=== PATIENT | female | born 1990 | race American Indian/Alaskan Native ===

== ENCOUNTER 2018-05-21 15:06 | Emergency (ER) | payer SELFPAY ==
[2018-05-21 15:41] VITALS: BP 110/71
[2018-05-21] MEDS ORDERED: CLEOCIN IM ONE (16:07)
[2018-05-21] MEDS ORDERED: MOTRIN PO ONE (16:08)
--- NOTE | 2018-05-21 16:12 | Emergency Department Report ---
ED ENT HPI - General Chief complaint: Dental/Oral Stated complaint: FACIAL SWELLING Time Seen by Provider: 05/21/18 16:03 Source: patient Mode of arrival: Ambulatory Limitations: No Limitations - History of Present Illness Initial comments: This is a 28-year-old female nontoxic, well nourished in appearance, no acute signs of distress presents to the ED with c/o of right upper and lower toothache 3 weeks. Patient denies following up with a dentist. Patient stated that pain radiates from his job to his right side of head. Patient otherwise denies any head trauma. Patient describes toothache as aching level of 8 out of 10. Patient denies any facial swelling. Patient denies any numbness, tingling, fever, chills, headache, stiff neck, abdominal pain, chest pain, shortness of breath. Patient stated allergies to PCN but denies significant PMH. MD complaint: tooth pain -: week(s) (3) Location: tooth # Severity: mild Severity scale (0 -10): 8 Quality: aching Consistency: constant Improves with: none Worsens with: none Context- Dental: history of dental caries, poor dental care Associated Symptoms: gum swelling, toothache. denies: fever, cough, pain with swallowing, sore throat, tinnitus, hearing loss, discharge from ear, rhinorrhea - Related Data Previous Rx's Medication Instructions Recorded Last Taken Type Acetaminophen/Codeine [Tylenol 1 tab PO Q6H PRN #12 tab 05/21/18 Unknown Rx /Codeine # 3 tab] Clindamycin [Clindamycin CAP] 300 mg PO Q8H #21 cap 05/21/18 Unknown Rx Ibuprofen [Motrin] 600 mg PO Q8H PRN #30 tablet 05/21/18 Unknown Rx Allergies Allergy/AdvReac Type Severity Reaction Status Date / Time Penicillins Allergy Itching Verified 05/21/18 15:36 ED Dental HPI - General Chief complaint: Dental/Oral Stated complaint: FACIAL SWELLING Time Seen by Provider: 05/21/18 16:03 Source: patient Mode of arrival: Ambulatory Limitations: No Limitations - Related Data Previous Rx's Medication Instructions Recorded Last Taken Type Acetaminophen/Codeine [Tylenol 1 tab PO Q6H PRN #12 tab 05/21/18 Unknown Rx /Codeine # 3 tab] Clindamycin [Clindamycin CAP] 300 mg PO Q8H #21 cap 05/21/18 Unknown Rx Ibuprofen [Motrin] 600 mg PO Q8H PRN #30 tablet 05/21/18 Unknown Rx Allergies Allergy/AdvReac Type Severity Reaction Status Date / Time Penicillins Allergy Itching Verified 05/21/18 15:36 ED Review of Systems ROS: Stated complaint: FACIAL SWELLING Other details as noted in HPI Constitutional: denies: chills, fever Eyes: denies: eye pain, eye discharge, vision change ENT: dental pain. denies: ear pain, throat pain Respiratory: denies: cough, shortness of breath, wheezing Cardiovascular: denies: chest pain, palpitations Endocrine: no symptoms reported Gastrointestinal: denies: abdominal pain, nausea, diarrhea Genitourinary: denies: urgency, dysuria, discharge Musculoskeletal: denies: back pain, joint swelling, arthralgia Skin: denies: rash, lesions Neurological: denies: headache, weakness, paresthesias Psychiatric: denies: anxiety, depression Hematological/Lymphatic: denies: easy bleeding, easy bruising ED Past Medical Hx - Past Medical History Previous Medical History?: No - Surgical History Past Surgical History?: No - Social History Smoking Status: Never Smoker Substance Use Type: None - Medications Home Medications: Home Medications Medication Instructions Recorded Confirmed Last Taken Type Acetaminophen/Codeine [Tylenol 1 tab PO Q6H PRN #12 tab 05/21/18 Unknown Rx /Codeine # 3 tab] Clindamycin [Clindamycin CAP] 300 mg PO Q8H #21 cap 05/21/18 Unknown Rx Ibuprofen [Motrin] 600 mg PO Q8H PRN #30 tablet 05/21/18 Unknown Rx ED Physical Exam - General Limitations: No Limitations General appearance: alert, in no apparent distress - Head Head exam: Present: atraumatic, normocephalic - Eye Eye exam: Present: normal appearance Pupils: Present: normal accommodation - ENT ENT exam: Present: mucous membranes moist, TM's normal bilaterally, normal external ear exam - Expanded ENT Exam Expanded Ear exam: Present: normal external inspection Mouth exam: Present: normal external inspection, tongue normal. Absent: drooling, trismus, muffled voice, tongue elevation, laceration Teeth exam: Present: dental caries, fractured tooth #, dental tenderness #, gingival enlargement, other (no facial swelling noted) Throat exam: Positive: normal inspection, other (Uvula midline.). Negative: tonsillar erythema, tonsillomegaly, tonsillar exudate, R peritonsillar mass, L peritonsillar mass - Neck Neck exam: Present: normal inspection, full ROM. Absent: tenderness, meningismus, lymphadenopathy - Respiratory Respiratory exam: Present: normal lung sounds bilaterally. Absent: respiratory distress - Cardiovascular Cardiovascular Exam: Present: regular rate, normal rhythm. Absent: systolic murmur, diastolic murmur, rubs, gallop - GI/Abdominal GI/Abdominal exam: Present: soft, normal bowel sounds - Extremities Exam Extremities exam: Present: normal inspection - Back Exam Back exam: Present: normal inspection - Neurological Exam Neurological exam: Present: alert, oriented X3 - Psychiatric Psychiatric exam: Present: normal affect, normal mood - Skin Skin exam: Present: warm, dry, intact, normal color. Absent: rash ED Course Vital Signs 05/21/18 15:36 Temperature 98.4 F Pulse Rate 68 Respiratory 16 Rate Blood Pressure 110/71 O2 Sat by Pulse 96 Oximetry - Reevaluation(s) Reevaluation #1: 05/21/18 16:12 Patient is speaking in full sentences with no signs of distress noted. ED Medical Decision Making - Medical Decision Making This is a 28-year-old female that presents with gingivitis and dental caries. Patient is stable and was examined by me. There is no facial swelling. I did give patient clindamycin 600 mg IM in the ED and patient is discharged with clindamycin. He had strict instructions to follow-up with oral maxillary surgeon in 24 hours or if symptoms would worsen to return to emergency room as was possible. Patient is discharged with Ultram, Peridex and Clinda. Patient was instructed not to operate any machinery when taking Ultram due to drowsiness. At time of discharge, the patient does not seem toxic or ill in appearance. No acute signs of distress noted. Patient agrees to discharge treatment plan of care. No further questions noted by the patient. Critical care attestation.: If time is entered above; I have spent that time in minutes in the direct care of this critically ill patient, excluding procedure time. ED Disposition Clinical Impression: Dental caries, Gingivitis Disposition: TO HOME OR SELFCARE Is pt being admited?: No Does the pt Need Aspirin: No Condition: Stable Instructions: Dental Caries (ED), Gingivitis (ED), Acetaminophen/Codeine (By mouth) Additional Instructions: Follow-up with a oral maxillary surgeon in 24 hours or if symptoms worsen and continue return to emergency room as soon as possible. Do not operate any machinery while taking Tylenol with codeine as this may cause drowsiness. Prescriptions: Acetaminophen/Codeine [Tylenol /Codeine # 3 tab] 1 tab PO Q6H PRN #12 tab PRN Reason: Pain , Severe (7-10) Clindamycin [Clindamycin CAP] 300 mg PO Q8H #21 cap Ibuprofen [Motrin] 600 mg PO Q8H PRN #30 tablet PRN Reason: Pain Referrals: PRIMARY CARE, [Referring] - 3-5 Days CRISTELA BANGURA MD [Staff Physician] - 3-5 Days [facility] [Outside] - 24 Hours Forms: Work/School Release Form(ED)
== END 2018-05-21 16:26 | disposition home or self-care (01) ==
LOC: ED 15:06
DX: K02.9 Dental caries, unspecified (principal); K05.00 Acute gingivitis, plaque induced; Z88.0 Allergy status to penicillin
CPT/HCPCS: 96372; 99282

== ENCOUNTER 2019-07-03 15:41 | Emergency (ER) | payer OTHER ==
--- NOTE | 2019-07-03 16:09 | Event Note ---
ED Screening Note ED Screening Note: cough that began three days ago states she has coughing only after frequent coughing +SOB +mucus production +rhinorrhea no sick contacts no pmhx allergy: penicillin LNMP: june 20, 2019 This initial assessment/diagnostic orders/clinical plan/treatment(s) is/are subject to change based on patients health status, clinical progression and re- assessment by fellow clinical providers in the ED. Further treatment and workup at subsequent clinical providers discretion. Patient/guardian urged not to elope from the ED as their condition may be serious if not clinically assessed and managed. Initial orders include: CXR
--- NOTE | 2019-07-03 16:38 | XRay Report ---
CHEST PA AND LATERAL VIEWS INDICATION: cough. COMPARISON: None. FINDINGS: Support devices: None. Heart: Within normal limits. Lungs/Pleura: No acute pulmonary or pleural findings. IMPRESSION: 1. No significant abnormality. Signer Name: Loi Spivey MD Signed: 07/03/2019 4:34 PM Workstation Name: [id number]
[2019-07-03] MEDS ORDERED: IBUPROFEN PO ONE (19:33)
[2019-07-03] MEDS ORDERED: TESSALON PERLES PO ONE (19:33)
--- NOTE | 2019-07-03 20:22 | Emergency Department Report ---
- General Chief Complaint: Dyspnea/Respdistress Stated Complaint: CHEST PAIN/JACOBO Time Seen by Provider: 07/03/19 16:05 Source: patient Mode of arrival: Ambulatory Limitations: No Limitations - History of Present Illness Initial Comments: This is a 29-year-old female nontoxic, well nourished in appearance, no acute signs of distress presents to the ED with c/o of dry nonproductive cough, rhinorrhea, nasal congestion x4 days. Patient also stated has chest pain that is worsened during cough. Patient denies any sick contacts. Patient denies any recent travels, long car, recent hospital stays. Patient denies any calf pain or calf tenderness. Patient denies any short of breath, fever, chills, nausea, vomiting, hemoptysis, numbness, tingling, headache or stiff neck. Patient stated allergies to PCN. Patient denies significant past medical history. MD Complaint: cough, rhinorrhea, nasal congestion -: days(s) (4) Severity: mild Severity scale (0 -10): 8 Quality: aching Consistency: intermittent Improves With: nothing Worsens With: nothing Associated Symptoms: rhinorrhea, nasal congestion, cough, chest pain (only during cough). denies: fever, chills, myalgias, diaphoresis, headache, sore throat, stiff neck, shortness of breath, abdominal pain, nausea, vomiting, diarrhea, dysuria, rash, confusion, right sweats, weight loss, epistaxis, hoar seness, ear pain Treatments Prior to Arrival: none - Related Data Previous Rx's Medication Instructions Recorded Last Taken Type Acetaminophen/Codeine [Tylenol 1 tab PO Q6H PRN #12 tab 05/21/18 Unknown Rx /Codeine # 3 tab] Clindamycin [Clindamycin CAP] 300 mg PO Q8H #21 cap 05/21/18 Unknown Rx Ibuprofen [Motrin] 600 mg PO Q8H PRN #30 tablet 05/21/18 Unknown Rx Benzonatate [Tessalon Perles] 100 mg PO Q8HR PRN #20 capsule 07/03/19 Unknown Rx Ibuprofen [Motrin] 600 mg PO Q8H PRN #20 tablet 07/03/19 Unknown Rx Prednisone [predniSONE 10 mg 10 mg PO .TAPER #1 tab.ds.pk 07/03/19 Unknown Rx (6-Day Pack, 21 Tabs)] Allergies Allergy/AdvReac Type Severity Reaction Status Date / Time Penicillins Allergy Itching Verified 07/03/19 15:42 ED Review of Systems ROS: Stated complaint: CHEST PAIN/JACOBO Other details as noted in HPI Constitutional: denies: chills, fever Eyes: denies: eye pain, eye discharge, vision change ENT: congestion. denies: ear pain, throat pain Respiratory: cough. denies: shortness of breath, wheezing Cardiovascular: chest pain. denies: palpitations Endocrine: no symptoms reported Gastrointestinal: denies: abdominal pain, nausea, diarrhea Genitourinary: denies: urgency, dysuria, discharge Musculoskeletal: denies: back pain, joint swelling, arthralgia Skin: denies: rash, lesions Neurological: denies: headache, weakness, paresthesias Psychiatric: denies: anxiety, depression Hematological/Lymphatic: denies: easy bleeding, easy bruising ED Past Medical Hx - Past Medical History Previous Medical History?: No - Surgical History Past Surgical History?: No - Social History Smoking Status: Never Smoker Substance Use Type: Marijuana - Medications Home Medications: Home Medications Medication Instructions Recorded Confirmed Last Taken Type Acetaminophen/Codeine [Tylenol 1 tab PO Q6H PRN #12 tab 05/21/18 Unknown Rx /Codeine # 3 tab] Clindamycin [Clindamycin CAP] 300 mg PO Q8H #21 cap 05/21/18 Unknown Rx Ibuprofen [Motrin] 600 mg PO Q8H PRN #30 tablet 05/21/18 Unknown Rx Benzonatate [Tessalon Perles] 100 mg PO Q8HR PRN #20 capsule 07/03/19 Unknown Rx Ibuprofen [Motrin] 600 mg PO Q8H PRN #20 tablet 07/03/19 Unknown Rx Prednisone [predniSONE 10 mg 10 mg PO .TAPER #1 tab.ds.pk 07/03/19 Unknown Rx (6-Day Pack, 21 Tabs)] ED Physical Exam - General Limitations: No Limitations General appearance: alert, in no apparent distress - Head Head exam: Present: atraumatic, normocephalic - Neck Neck exam: Present: normal inspection, full ROM. Absent: tenderness, meningismus, lymphadenopathy - Respiratory Respiratory exam: Present: normal lung sounds bilaterally, chest wall tenderness. Absent: respiratory distress, wheezes, rales, rhonchi, stridor, accessory muscle use, decreased breath sounds, prolonged expiratory - Cardiovascular Cardiovascular Exam: Present: regular rate, normal rhythm, normal heart sounds. Absent: bradycardia, tachycardia, irregular rhythm, systolic murmur, diastolic murmur, rubs, gallop - Extremities Exam Extremities exam: Present: normal inspection, full ROM - Back Exam Back exam: Present: normal inspection, full ROM. Absent: tenderness, CVA tenderness (R), CVA tenderness (L), muscle spasm, paraspinal tenderness, vertebral tenderness, rash noted - Neurological Exam Neurological exam: Present: alert, oriented X3, normal gait - Psychiatric Psychiatric exam: Present: normal affect, normal mood - Skin Skin exam: Present: warm, dry, intact, normal color. Absent: rash ED Course Vital Signs 07/03/19 16:06 Temperature 98.5 F Pulse Rate 82 Respiratory 20 Rate Blood Pressure 120/69 O2 Sat by Pulse 99 Oximetry - Reevaluation(s) Reevaluation #1: 07/03/19 20:24 Patient is speaking in full sentences with no signs of distress noted. ED Medical Decision Making - Medical Decision Making This is a 29-year-old female that presents with bronchitis and costochondritis. Patient is stable and was examined by me. Chest x-ray has been obtained and dictated by radiologist with normal exam. EKG normal sinus rhythm with no ST abnormalities. Patient is notified of x-ray results with no questions noted. Patient was instructed to increase hydration, rest and take Motrin for fever episodes. Patient received motrin and tesslone perrls in the ED. Vitals stable. Patient is nonfebrile and normal heart rate. Patient was instructed Follow-up with a primary care doctor in 3-5 days or if symptoms worsen and continue return to emergency room as soon as possible. At time time of disc harge, the patient does not seem toxic or ill in appearance. No acute signs of distress noted. Patient agrees to discharge treatment plan of care. No further questions noted by the patient. Critical care attestation.: If time is entered above; I have spent that time in minutes in the direct care of this critically ill patient, excluding procedure time. ED Disposition Clinical Impression: Bronchitis, Costochondritis Disposition: - TO HOME OR SELFCARE Is pt being admited?: No Does the pt Need Aspirin: No Condition: Stable Instructions: Acute Bronchitis (ED), Costochondritis (ED) Additional Instructions: Follow-up with a primary care doctor in 3-5 days or if symptoms worsen and continue return to emergency room as soon as possible. Prescriptions: Ibuprofen [Motrin] 600 mg PO Q8H PRN #20 tablet PRN Reason: Pain Prednisone [predniSONE 10 mg (6-Day Pack, 21 Tabs)] 10 mg PO .TAPER #1 tab.ds.pk Benzonatate [Tessalon Perles] 100 mg PO Q8HR PRN #20 capsule PRN Reason: Cough Referrals: SHANNON [place] MD JUDI [Primary Care Provider] - 3-5 Days PRIMARY CAREMD [Referring] - 3-5 Days CRISTELA BANGURA MD [Staff Physician] - 3-[address] [facility] [Outside] - 3-5 Days [facility] [Outside] - 3-5 Days Forms: Work/School Release Form(ED)
[2019-07-03 20:30] VITALS: BP 111/58
== END 2019-07-03 20:33 | disposition home or self-care (01) ==
LOC: ED 15:41
DX: J40 Bronchitis, not specified as acute or chronic (principal); M94.0 Chondrocostal junction syndrome [Tietze]; F12.10 Cannabis abuse, uncomplicated; Z79.899 Other long term (current) drug therapy; Z88.0 Allergy status to penicillin
CPT/HCPCS: 71046; 93005; 93010

== ENCOUNTER 2020-09-23 09:11 | Emergency (ER) | payer OTHER ==
[2020-09-23 09:38] VITALS: BP 99/69
[2020-09-23] MEDS ORDERED: HYDROmorphone 1 MG/1 ML INJ IV ONE ×2 (10:03→10:45)
[2020-09-23] MEDS ORDERED: SODIUM CHLORIDE 0.9% 1000 ML 1,000 ML IV ONE (10:04)
--- NOTE | 2020-09-23 10:04 | Emergency Department Report ---
ED General Adult HPI - General Chief complaint: Abdominal Pain Stated complaint: ABD PAIN/BLEEDING PUI?: No Time Seen by Provider: 09/23/20 09:58 Source: patient, EMS ( EMS documentation not available at time of chart dic tation ) Mode of arrival: Wheelchair Limitations: Physical Limitation - History of Present Illness Initial comments: The patient was evaluated in the emergency department for symptoms described in the history of present illness. He/she was evaluated in the context of the global COVID-19 pandemic, which necessitated consideration that the patient might be at risk for infection with the virus that causes COVID-19. Institutional protocols and algorithms that pertain to the evaluation of patients at risk for COVID-19 are in a state of rapid change based on information released by regulatory bodies including the CDC and federal and state organizations. These policies and algorithms were followed during the patient's care in the emergency department. Please note that these policies, procedures and recommendations changed on a rapid basis. During the entire history and physical examination, I am chaperoned by nurse Ava Mcelroy. Patient is a 30-year-old female who is not known to myself previously, she denies chronic medical conditions and surgical history. Her primary care doctor is at [place]. She does not believe that she has a forestry professor. She is not sure if she is , but does not believe so. She presents to the ER with a complaint of nontraumatic diffuse lower abdominal pain, and associated vaginal bleeding. This started yesterday. There is no headache, neck pain, chest pain. There is no of abdominal pain. There is positive nausea. No urinary symptoms. No history of gonorrhea/chlamydia. She indicates the pain started suprapubic, and migrated to the left lower quadrant and right lower quadrant. She describes the pain as what she imagine a incision might feel like, however, she is never had a . She reports that over the past few months, she has had increasing frequency of lower abdominal pain associate with vaginal bleeding. However, she is not obtained a definitive diagnosis or evaluation. Pain is aching and sharp, increases with palpation, decreases with rest and position. -: Gradual, hour(s) (Symptoms started last night) Location: abdomen Radiation: abdomen Quality: other Consistency: other Improves with: other Worsens with: other Associated Symptoms: other - Related Data Previous Rx's Medication Instructions Recorded Last Taken Type Clindamycin [Clindamycin CAP] 300 mg PO Q8H #21 cap 05/21/18 Unknown Rx Benzonatate [Tessalon Perles] 100 mg PO Q8HR PRN #20 capsule 07/03/19 Unknown Rx Albuterol Sulfate [Proventil Hfa] 6.7 gm IH Q4HR #1 hfa.aer.ad 05/05/20 Unknown Rx Azithromycin [Zithromax Z-EVETTE] 250 mg PO ONCE #1 tablet 05/05/20 Unknown Rx Benzonatate [Tessalon Perles] 100 mg PO Q8HR #21 capsule 05/05/20 Unknown Rx Acetaminophen [Non-Aspirin Extra 500 mg PO Q6HR PRN #30 tablet 09/23/20 Unknown Rx Strength] Ibuprofen [Motrin] 600 mg PO Q8H PRN #30 tablet 09/23/20 Unknown Rx Ondansetron [Zofran Odt] 4 mg PO Q8HR PRN #20 tab.rapdis 09/23/20 Unknown Rx Allergies Allergy/AdvReac Type Severity Reaction Status Date / Time Penicillins Allergy Itching Verified 07/03/19 15:42 ED Review of Systems ROS: Stated complaint: ABD PAIN/BLEEDING Other details as noted in HPI Constitutional: malaise. denies: fever Eyes: denies: eye discharge ENT: denies: epistaxis, congestion Respiratory: denies: cough Cardiovascular: denies: chest pain Gastrointestinal: abdominal pain, nausea Genitourinary: abnormal menses. denies: dysuria, discharge Musculoskeletal: denies: back pain Neurological: weakness Psychiatric: anxiety Hematological/Lymphatic: denies: easy bleeding ED Past Medical Hx - Past Medical History Previous Medical History?: No - Surgical History Past Surgical History?: No - Social History Smoking Status: Never Smoker Substance Use Type: None - Medications Home Medications: Home Medications Medication Instructions Recorded Confirmed Last Taken Type Clindamycin [Clindamycin CAP] 300 mg PO Q8H #21 cap 05/21/18 Unknown Rx Benzonatate [Tessalon Perles] 100 mg PO Q8HR PRN #20 capsule 07/03/19 Unknown Rx Albuterol Sulfate [Proventil Hfa] 6.7 gm IH Q4HR #1 hfa.aer.ad 05/05/20 Unknown Rx Azithromycin [Zithromax Z-EVETTE] 250 mg PO ONCE #1 tablet 05/05/20 Unknown Rx Benzonatate [Tessalon Perles] 100 mg PO Q8HR #21 capsule 05/05/20 Unknown Rx Acetaminophen [Non-Aspirin Extra 500 mg PO Q6HR PRN #30 tablet 09/23/20 Unknown Rx Strength] Ibuprofen [Motrin] 600 mg PO Q8H PRN #30 tablet 09/23/20 Unknown Rx Ondansetron [Zofran Odt] 4 mg PO Q8HR PRN #20 tab.rapdis 09/23/20 Unknown Rx ED Physical Exam - General Limitations: Physical Limitation General appearance: alert, anxious, in distress - Head Head exam: Present: atraumatic, normocephalic - Eye Eye exam: Present: normal appearance, EOMI. Absent: nystagmus - ENT ENT exam: Present: normal exam, normal orophraynx, mucous membranes moist, normal external ear exam - Neck Neck exam: Present: normal inspection, full ROM. Absent: tenderness, meningismus - Respiratory Respiratory exam: Present: normal lung sounds bilaterally. Absent: respiratory distress, wheezes, rales, rhonchi, stridor, decreased breath sounds - Cardiovascular Cardiovascular Exam: Present: regular rate, normal rhythm, normal heart sounds. Absent: bradycardia, tachycardia, irregular rhythm, systolic murmur, diastolic murmur, rubs, gallop - GI/Abdominal GI/Abdominal exam: Present: soft, tenderness (There is mild diffuse lower abdominal tenderness. There is no rebound, guarding or there is no peritoneal sign.), normal bowel sounds. Absent: distended, guarding, rebound, rigid - External exam: Present: normal external exam, bleeding Speculum exam: Present: vaginal bleeding, tissue, other (Chaperoned by nurse Ava Sotelo) Bi-manual exam: Present: cervical motion tendernes, other (Patient unable to tolerate adnexal examination.) - Extremities Exam Extremities exam: Present: normal inspection, full ROM, other (2+ pulses noted in the bilateral upper and lower extremities. There is no palpable cord. n egative Homans sign. Muscular compartments are soft. The pelvis is stable.). Absent: pedal edema, calf tenderness - Back Exam Back exam: Present: normal inspection, full ROM. Absent: tenderness, CVA tenderness (R), CVA tenderness (L), paraspinal tenderness, vertebral tenderness - Neurological Exam Neurological exam: Present: alert, other (No facial droop. Tongue midline. Extraocular movements intact bilaterally. Facial sensation intact to light touch in V1, V2, V3 distribution bilaterally. 5 and a 5 strength in 4 extremities. Sensation intact to light touch in 4 extremities.). Absent: motor sensory deficit - Psychiatric Psychiatric exam: Present: anxious - Skin Skin exam: Present: warm, dry, intact, normal color. Absent: rash ED Course Vital Signs 09/23/20 09:38 Temperature 97.8 F Pulse Rate 77 Respiratory 20 Rate Blood Pressure 99/69 [Left] O2 Sat by Pulse 99 Oximetry - Reevaluation(s) Reevaluation #1: 09/23/20 10:38 Differential diagnosis, include not limited to: Ovarian cyst, ovarian torsion, pelvic inflammatory disease, dysfunctional uterine bleeding, fibroids, , miscarriage, ectopic Assessment and plan: 30-year-old female with complaint of diffuse lower abdominal pain associated with vaginal bleeding. Check appropriate laboratory studies, pelvic ultrasound, urinalysis, perform gynecologic examination, treat pain liberally, and reassess. Reevaluation #2: 09/23/20 12:22 The patient is reassessed She is in absolutely no pain whatsoever. Abdomen soft and benign, without rebound, guarding or peritoneal signs. She is also eating food. She is also noted to be speaking on her cell phone, and she is in no acute distress. Her ultrasound has not demonstrated any pathologic abnormality. She has not complained of any urinary symptoms and specifically denies irritative and obstructive urinary symptoms. She also reports that she has an appointment with her forestry professor at [employer] today. This is most likely dysfunctional uterine bleeding. She reports readiness for discharge, and reliability to follow-up with her outpatient forestry professor later on today. ED Medical Decision Making - Lab Data Result diagrams: 09/23/20 10:30 09/23/20 10:30 Vital Signs 09/23/20 09:38 Temperature 97.8 F Pulse Rate 77 Respiratory 20 Rate Blood Pressure 99/69 [Left] O2 Sat by Pulse 99 Oximetry Lab Results 09/23/20 09/23/20 09/23/20 Range/Units 10:30 10:30 10:30 WBC 6.5 (4.5-11.0) K/mm3 RBC 3.84 (3.65-5.03) M/mm3 Hgb 11.2 (10.1-14.3) gm/dl Hct 34.7 (30.3-42.9) % MCV 90 (79-97) fl MCH 29 (28-32) pg MCHC 32 (30-34) % RDW 13.6 (13.2-15.2) % Plt Count 314 (140-440) K/mm3 Sodium 138 (137-145) mmol/L Potassium 3.9 (3.6-5.0) mmol/L Chloride 107.9 H (98-107) mmol/L Carbon Dioxide 22 (22-30) mmol/L Anion Gap 12 mmol/L BUN 9 (7-17) mg/dL Creatinine 0.8 (0.6-1.2) mg/dL Estimated GFR > 60 ml/min BUN/Creatinine Ratio 11 % Glucose 102 H (65-100) mg/dL Calcium 8.6 (8.4-10.2) mg/dL Magnesium 1.90 (1.7-2.3) mg/dL Total Bilirubin 0.30 (0.1-1.2) mg/dL AST 15 (5-40) units/L ALT 8 (7-56) units/L Alkaline Phosphatase 43 (35-129) units/L Total Creatine Kinase 183 H (30-135) units/L Total Protein 6.5 (6.3-8.2) g/dL Albumin 4.1 (3.9-5) g/dL Albumin/Globulin Ratio 1.7 % Blood Type 09/23/20 Range/Units 10:30 WBC (4.5-11.0) K/mm3 RBC (3.65-5.03) M/mm3 Hgb (10.1-14.3) gm/dl Hct (30.3-42.9) % MCV (79-97) fl MCH (28-32) pg MCHC (30-34) % RDW (13.2-15.2) % Plt Count (140-440) K/mm3 Sodium (137-145) mmol/L Potassium (3.6-5.0) mmol/L Chloride (98-107) mmol/L Carbon Dioxide (22-30) mmol/L Anion Gap mmol/L BUN (7-17) mg/dL Creatinine (0.6-1.2) mg/dL Estimated GFR ml/min BUN/Creatinine Ratio % Glucose (65-100) mg/dL Calcium (8.4-10.2) mg/dL Magnesium (1.7-2.3) mg/dL Total Bilirubin (0.1-1.2) mg/dL AST (5-40) units/L ALT (7-56) units/L Alkaline Phosphatase (35-129) units/L Total Creatine Kinase (30-135) units/L Total Protein (6.3-8.2) g/dL Albumin (3.9-5) g/dL Albumin/Globulin Ratio % Blood Type A POSITIVE - Radiology Data Radiology results: report reviewed, image reviewed Print Report Referring Physician: ELIEL JUAN Patient Name: AVA HERNÁNDEZ Date of : 1990 Sex: Female Report Date: 2020-09-23 Report Status: [place] [id number] Ultrasound Report Signed Patient: AVA HERNÁNDEZ MR#: [id number] : 1990 Acct:[id number] Age/Sex: 30 / F ADM Date: 09/23/20 Loc: ED Attending Dr: Ordering Physician: ELIEL JUAN MD Date of Service: 09/23/20 Procedure(s): US pelvis duplex doppler comp Accession Number(s): [id number] cc: ELIEL JUAN MD ULTRASOUND PELVIS INDICATION: Lower abdominal and pelvic pain, vaginal bleeding. TECHNIQUE: Transabdominal and Transvaginal. Duplex Color Doppler used: Yes. COMPARISON: None available FINDINGS: Uterus: Present. Size: 8.4 x 3.4 x 4.5 cm. Endometrial complex: Normal measuring 1.2 cm. Mass lesions: None. Additional findings: None. Right Ovary: Size: 4.4 x 3.2 x 3.0 cm Blood flow: Normal. Cyst or mass: None. Left Ovary: Size: 3.1 x 2.4 x 3.8 cm Blood flow: Normal. Cyst or mass: None. Urinary Bladder: Normal. Free Fluid: None. Additional Findings: None. IMPRESSION: 1. No acute sonographic abnormality of the pelvis. Signer Name: Serjio Estrada MD Signed: 09/23/2020 12:10 PM Workstat ion Name: [id number] Transcribed By: [place] Dictated By: Serjio Estrada MD Electronically Authenticated By: Serjio Estrada MD Signed Date/Time: 09/23/20 1210 DD/ 1209 TD/TT: Critical care attestation.: If time is entered above; I have spent that time in minutes in the direct care of this critically ill patient, excluding procedure time. ED Disposition Clinical Impression: Dysmenorrhea Disposition: DC-01 TO HOME OR SELFCARE Is pt being admited?: No Does the pt Need Aspirin: No Condition: Stable Instructions: Abdominal Pain (ED), Dysmenorrhea Additional Instructions: Cultures were sent today, and results will be available in the next 3 to 5 days. Please have your primary care doctor or forestry professor contact the medical records department to obtain culture results. Please follow-up with your forestry professor later on today as scheduled, or any of the aforementioned/listed forestry professor within the next week. Rest, avoid heavy lifting and strenuous physical activity, and participate in sexual activity as physically tolerated. Take the pain medication, nausea medication as needed and directed, and please return to the emergency room right away with new pain, worsened pain, migration of pain, projectile vomiting, change in mental status, confusion, inability to tolerate liquid feeds, new, worsened or different symptoms not present on the initial emergency room evaluation. Referrals: [facility] [Provider Group] - 3-5 Days [facility] [Provider Group] - 3-5 Days [facility] [Provider Group] - 3-5 Days Forms: Work/School Release Form(ED)
[2020-09-23] MEDS ORDERED: ONDANSETRON 4 MG/2 ML INJ IV ONE (10:39)
[2020-09-23 10:58] LABS: Hematocrit 34.7 % (30.3-42.9); Hemoglobin 11.2 gm/dl (10.1-14.3); Mean Corpuscular HGB Conc 32 % (30-34); Mean Corpuscular Volume 90 fl (79-97); Red Blood Count 3.84 M/mm3 (3.65-5.03); Red Cell Distribution Width 13.6 % (13.2-15.2)
[2020-09-23 11:03] LABS: Platelet Count 314 K/mm3 (140-440)
[2020-09-23 11:11] LABS: Alanine Aminotransferase 8 units/L (7-56); Albumin 4.1 g/dL (3.9-5); BUN/Creatinine Ratio 11; Blood Urea Nitrogen 9 mg/dL (7-17); Calcium 8.6 mg/dL (8.4-10.2); Hemolysis Index 2
--- NOTE | 2020-09-23 12:15 | Ultrasound Report ---
ULTRASOUND PELVIS INDICATION: Lower abdominal and pelvic pain, vaginal bleeding. TECHNIQUE: Transabdominal and Transvaginal. Duplex Color Doppler used: Yes. COMPARISON: None available FINDINGS: Uterus: Present. Size: 8.4 x 3.4 x 4.5 cm. Endometrial complex: Normal measuring 1.2 cm. Mass lesions: None. Additional findings: None. Right Ovary: Size: 4.4 x 3.2 x 3.0 cm Blood flow: Normal. Cyst or mass: None. Left Ovary: Size: 3.1 x 2.4 x 3.8 cm Blood flow: Normal. Cyst or mass: None. Urinary Bladder: Normal. Free Fluid: None. Additional Findings: None. IMPRESSION: 1. No acute sonographic abnormality of the pelvis. Signer Name: Serjio Estrada MD Signed: 09/23/2020 12:10 PM Workstation Name: [id number]
== END 2020-09-23 12:50 | disposition home or self-care (01) ==
LOC: ED 09:11
DX: N94.6 Dysmenorrhea, unspecified (principal); Z79.899 Other long term (current) drug therapy; Z88.0 Allergy status to penicillin
CPT/HCPCS: 36415; 76830; 80053; 82550; 83735; 84702; 85027; 86850; 86900; 86901; 87210; 87591; 93975; 96361; 96374; 96375; 96376; 99285; J1170; J2405; J7030